=== PATIENT | female | born 2000 | race Caucasian/White ===

== ENCOUNTER 2020-10-20 05:56 | Inpatient (IN) | payer OTHER ==
[~2020-10-20 05:56] MED LIST: COLACE100 MG PO; FEOSOL325 MG PO; MOTRIN600 MG PO; PERCOCET 5-3251 EACH PO; PRENATAL FORMU1 EACH PO
[2020-10-20 07:03] LABS: BILIRUBIN NEGATIVE (NEGATIVE); BLOOD NEGATIVE Ery/uL (NEGATIVE); CLARITY CLEAR (CLEAR); COLOR YELLOW (YELLOW); GLUCOSE (U) NORMAL (NORMAL); LEUKOCYTES NEGATIVE Leu/uL (NEGATIVE); NITRITE NEGATIVE (NEGATIVE); PROTEIN NEGATIVE (NEGATIVE); UROBILINOGEN 0.2 mg/dL (0.2-1.0); pH 6.5 (5.0-9.0)
[2020-10-20 07:05] LABS: HCT 38.7 % (37.0-47.0); HGB 12.6 g/dl (12.5-16.0); MCHC 32.6 g/dL (32.0-36.0); MPV 10.3 fL (6.0-9.5); RBC 4.5 M/uL (4.20-5.40); RDW 13.9 % (11.5-14.0); WBC 16.1 K/uL (4.0-10.5)
[2020-10-20 07:11] LABS: AMPHETAMINES NEGATIVE (NEGATIVE); BARBITURATES NEGATIVE (NEGATIVE); ECSTASY (MDMA) NEGATIVE (NEGATIVE); MARIJUANA (THC) NEGATIVE (NEGATIVE); METHADONE NEGATIVE (NEGATIVE); OPIATES NEGATIVE (NEGATIVE); OXYCODONE NEGATIVE (NEGATIVE)
[2020-10-20 09:51] LABS: BILIRUBIN NEGATIVE (NEGATIVE); BLOOD NEGATIVE Ery/uL (NEGATIVE); CLARITY CLEAR (CLEAR); COLOR YELLOW (YELLOW); GLUCOSE (U) NORMAL (NORMAL); LEUKOCYTES NEGATIVE Leu/uL (NEGATIVE); NITRITE NEGATIVE (NEGATIVE); PROTEIN NEGATIVE (NEGATIVE); SPECIFIC GRAVITY 1.015 (1.001-1.030); UROBILINOGEN 0.2 mg/dL (0.2-1.0)
[2020-10-21 06:35] LABS: HCT 29.8 % (37.0-47.0); HGB 9.5 g/dL (12.5-16.0)
== END 2020-10-22 13:30 | disposition home or self-care (01) | DRG 787 ==
LOC: FER 05:56 → FOB 05:56 → FER 05:57 → FOB 05:57
PROVIDERS: ADMIT Obstetrics & Gynecology
PROC: 10D00Z1 Extraction of Products of Conception, Low, Open Approach (ICD-10-PCS; principal; 2020-10-20 09:45)
DX: O34.211 Maternal care for low transverse scar from previous cesarean delivery (principal); D62 Acute posthemorrhagic anemia; Z37.0 Single live birth; O24.420 Gestational diabetes mellitus in childbirth, diet controlled; O69.81X0 Labor and delivery complicated by cord around neck, without compression, not applicable or unspecified; O99.214 Obesity complicating childbirth; Z3A.39 39 weeks gestation of pregnancy; Z20.822 Contact with and (suspected) exposure to COVID-19; O99.03 Anemia complicating the puerperium
CPT/HCPCS: 36415; 80305; 81003; 82962; 85014; 85018; 86850; 86900; 86901; J0456; J0690; J1100; J1200; J1885; J2274; J2405; J2916; J7050; J7120; U0002